=== PATIENT | female | born 1995 | race Two or more races ===

== ENCOUNTER 2020-11-04 16:23 | Emergency (ER) | payer OTHER ==
[~2020-11-04] VITALS: Ht 160 cm; Wt 72.7 kg
[2020-11-04] MEDS ORDERED: IV NORMAL SALINE 1000ML BAG 1,000 ML IV SCH (17:30)
--- NOTE | 2020-11-04 17:48 | PHYS DOC ---
Past Medical History Past Medical History: No Pertinent History Past Surgical History: No Surgical History Smoking Status: Current Every Day Smoker Alcohol Use: Occasionally Drug Use: Marijuana General Adult EDM: Chief Complaint: OTHER COMPLAINTS HPI: HPI: Patient is a 25 year old female who presents with on October 09 she had a C- section at [facility] by a Dr. Smith of which she has an appointment with on November 18. Patient states there is a section of the line that is draining and has a foul smell. She states she also had 102 fever over the last couple of days. Patient states she also has had bug bites generalized on her body after being in an outside of somebody's house on 02 November. She states she has been taking allergy medication. Patient states she has stopped breast- feeding. Patient states her c section incision is sore to touch and has been cleaning it with peroxide. Review of Systems: Review of Systems: Constitutional: + fever or chills. [] Eyes: Denies change in visual acuity. [] HENT: Denies nasal congestion or sore throat. [] Respiratory: Denies cough or shortness of breath. [] Cardiovascular: Denies chest pain or edema. [] GI: Denies abdominal pain, nausea, vomiting, bloody stools or diarrhea. [] : Denies dysuria. [] Musculoskeletal: Denies back pain or joint pain. [] Integument: + generalized itchy rash. + incision drainage and foul smell [] Neurologic: Denies headache, focal weakness or sensory changes. [] Endocrine: Denies polyuria or polydipsia. [] Lymphatic: Denies swollen glands. [] Psychiatric: Denies depression or anxiety. [] Heart Score: C/O Chest Pain: No Risk Factors: Risk Factors: DM, Current or recent (<one month) smoker, HTN, HLP, family history of CAD, obesity. Risk Scores: Score 0 - 3: 2.5% MACE over next 6 weeks - Discharge Home Score 4 - 6: 20.3% MACE over next 6 weeks - Admit for Clinical Observation Score 7 - 10: 72.7% MACE over next 6 weeks - Early Invasive Strategies Current Medications: Current Medications Medications (Trade) Dose Ordered Sig/Seth Start Time Stop Time Status Last Admin Dose Admin Sodium Chloride 1,000 ml @ 1,000 mls/hr Q1H 11/04/20 17:30 11/04/20 18:29 Allergies: Allergies: Allergies Coded Allergies Type Severity Reaction Last Updated Verified No Known Drug Allergies 04/23/13 No Physical Exam: PE: Constitutional: Well developed, well nourished, no acute distress, non-toxic appearance. [] HENT: Normocephalic, atraumatic, bilateral external ears normal, oropharynx moist, no oral exudates, nose normal. [] Eyes: PERRLA, EOMI, conjunctiva normal, no discharge. [] Neck: Normal range of motion, no tenderness, supple, no stridor. [] Cardiovascular:Heart rate regular rhythm, no murmur [] Lungs & Thorax: Bilateral breath sounds clear to auscultation [] Abdomen: Bowel sounds normal, soft, no tenderness, no masses, no pulsatile masses. [] Skin: Warm, dry, no erythema, no rash. 1 inch of the looks to be slightly opened and having some drainage. Bites generalized all over body [] Back: No tenderness, no CVA tenderness. [] Extremities: No tenderness, no cyanosis, no clubbing, ROM intact, no edema. [] Neurologic: Alert and oriented X 3, normal motor function, normal sensory function, no focal deficits noted. [] Psychologic: Affect normal, judgement normal, mood normal. [] EKG: EKG: [] Radiology/Procedures: Radiology/Procedures: [] Impression: [facility] [address] [place], [place] [id number] IMAGING REPORT Signed PATIENT: PHIL NGUYEN ACCOUNT: [id number] : 1995 LOCATION: ER AGE: 25 SEX: F EXAM STATUS: REG ER ORD. PHYSICIAN: LEESA PHELAN APRN REASON: c section infection and drainage, fever PROCEDURE: CT ABD PELV W/ IV CONTRST ONLY EXAMINATION: CT ABDOMEN+PELVIS W CLINICAL HISTORY: infection and drainage, fever TECHNIQUE: CT of the abdomen and pelvis was performed using standard technique, scanning from just above the dome of the diaphragm to the symphysis pubis following administration of intravenous contrast. CT Dose Reduction Employed: One or more of the following individualized dose reduction techniques were utilized for this examination: 1. Automated exposure control 2. Adjustment of the mA and/or kV according to patient size 3. Use of iterative reconstruction technique. COMPARISON: None FINDINGS: Visualized heart and lungs unremarkable. Cholecystectomy. Liver, pancreas, spleen, adrenal glands, and kidneys unremarkable. Postoperative changes related to section. Mild heterogeneous stranding extending from the anterior superior urinary bladder to the posterior abdominal wall proximal to the scar, nonspecific and possibly postsurgical. No evidence of organized rim-enhancing collection to suggest an abscess. Minimally filled urinary bladder. Uterus and ovaries unremarkable. Mild scattered diverticulosis with mild posterior wall thickening and pericolonic stranding along the mid to distal descending colon, suggestive of diverticulitis/colitis. No bowel dilation. Appendix within normal limits. No evidence of abdominal aortic or iliac artery aneurysm. Moderate degenerative disc disease at L5-S1. IMPRESSION: Findings compatible with mild diverticulitis/colitis in the ascending colon. Postoperative and nonspecific soft tissue changes related to section as described with no evidence of postsurgical abscess. Electronically signed by: Juan Avila DO (11/04/2020 6:52 PM) [facility] DICTATED and SIGNED BY: JUAN AVILA DO DATE: 11/04/20 [id number] Course & Med Decision Making: Course & Med Decision Making Pertinent Labs and Imaging studies reviewed. (See chart for details) See HPI. Alert and oriented x4. Ambulatory with a steady gait. Speaks in full clear sentences. Patient appears to have random generalized insect bites. There is no bites in the webbing of her fingers or the toes. Dr. Pelaez did go in and look over the patient he agrees her some kind of bug bites. Abdomen is soft but slightly tender at the laceration area. No drainage is seen at this time. She is afebrile. Blood work unremarkable. CT abdomen pelvis showed some diverticulitis/colitis. It does not show an abscess or any fluid collection connected to the . She is afebrile. She is tolerating all p.o. fluid she has not had any nausea or vomiting body aches. Patient is stable and will be sent home on Augmentin. Patient is stable for outpatient treatment and in no distress. [] Kalpana Disclaimer: Kalpana Disclaimer: This electronic medical record was generated, in whole or in part, using a voice recognition dictation system. Departure Departure Impression: Primary Impression: Diverticulitis Additional Impressions: Colitis Bug bite without infection Qualified Codes: W57.XXXA - Bitten or stung by nonvenomous insect and other nonvenomous arthropods, initial encounter Disposition: HOME / SELF CARE / HOMELESS Condition: STABLE Referrals: NO PCP (PCP) BETH GRAHAM MD Patient Instructions: Colitis, Diverticulitis, Insect Bite Additional Instructions: Follow-up with primary care doctor or your OB doctor sooner. I will refer you to a GI doctor for colitis and diverticulitis for follow-up care. Need to call and get a follow-up appointment. Drink plenty of fluids. I would just put Neosporin over your incision. Scripts Amoxicillin/Potassium Clav (AUGMENTIN 875-125 TABLET) 1 Each Tablet 1 TAB PO BID for 10 Days, #20 TAB 0 Refills Prov: LEESA PHELAN APRN 11/04/20 LEESA PHELAN APRN Nov 04, 2020 17:48
[2020-11-04 18:02] VITALS: BP 112/71
[2020-11-04 18:04] LABS: BASO % 1 % (0-3); EOS # 0.3 x10^3/uL (0.0-0.7); EOS % 4 % (0-3); HEMATOCRIT 35.5 % (36.0-47.0); HEMOGLOBIN 12.2 g/dL (12.0-15.5); LYMPH # 2.9 x10^3/uL (1.0-4.8); LYMPH % 37 % (24-48); MEAN CORPUSCULAR HEMOGLOBIN 29 pg (25-35); MEAN CORPUSCULAR HGB CONC 34 g/dL (31-37); MEAN CORPUSCULAR VOLUME 85 fL (79-100); MONO # 0.4 x10^3/uL (0.0-1.1); MONO % 5 % (0-9); NEUT # 4.2 x10^3/uL (1.8-7.7); NEUT % 54 % (31-73); PLATELET COUNT 253 x10^3/uL (140-400); RED BLOOD COUNT 4.18 x10^6/uL (3.50-5.40); WHITE BLOOD COUNT 7.8 x10^3/uL (4.0-11.0)
[2020-11-04 18:17] LABS: CREATININE 0.6 mg/dL (0.6-1.0); GFR 121.8; POTASSIUM 3.9 mmol/L (3.5-5.1)
[2020-11-04 18:24] LABS: ALBUMIN 3.8 g/dL (3.4-5.0); ALBUMIN/GLOBULIN RATIO 1.1 (1.0-1.7); TOTAL BILIRUBIN 0.2 mg/dL (0.2-1.0); TOTAL PROTEIN 7.3 g/dL (6.4-8.2)
[2020-11-04 18:30] LABS: BILIRUBIN,URINE NEGATIVE (NEG); CLARITY,URINE CLEAR; COLOR,URINE YELLOW; NITRITE,URINE NEGATIVE (NEG); PROTEIN,URINE NEGATIVE (NEG-TRACE); UROBILINOGEN,URINE 0.2 mg/dL (0.2 mg/dL)
[2020-11-04] MEDS ORDERED: DEXAMETHASONE 4 MG TABLET PO ONE (18:30)
[2020-11-04 18:39] LABS: BACTERIA,URINE 0 /HPF (0-FEW); RBC,URINE 0 /HPF (0-2); WBC,URINE OCC /HPF (0-4)
[2020-11-04] MEDS ORDERED: CONTRAST GIVEN. MC PRN (18:45)
[2020-11-04] MEDS ORDERED: IOHEXOL 300 MG/ML 100ML VIAL. IV ONE (18:45)
--- NOTE | 2020-11-04 18:54 | RAD ---
EXAMINATION: CT ABDOMEN+PELVIS W CLINICAL HISTORY: infection and drainage, fever TECHNIQUE: CT of the abdomen and pelvis was performed using standard technique, scanning from just ab ove the dome of the diaphragm to the symphysis pubis following administration of intravenous contrast . CT Dose Reduction Employed: One or more of the following individualized dose reduction techniques wer e utilized for this examination: 1. Automated exposure control 2. Adjustment of the mA and/or kV ac cording to patient size 3. Use of iterative reconstruction technique. COMPARISON: None FINDINGS: Visualized heart and lungs unremarkable. Cholecystectomy. Liver, pancreas, spleen, adrenal glands, and kidneys unremarkable. Postoperative changes related to section. Mild heterogeneous stranding extending from the an terior superior urinary bladder to the posterior abdominal wall proximal to the scar, nonspe cific and possibly postsurgical. No evidence of organized rim-enhancing collection to suggest an absc ess. Minimally filled urinary bladder. Uterus and ovaries unremarkable. Mild scattered diverticulosis with mild posterior wall thickening and pericolonic stranding along the mid to distal descending colon, suggestive of diverticulitis/colitis. No bowel dilation. Appendix wi thin normal limits. No evidence of abdominal aortic or iliac artery aneurysm. Moderate degenerative disc disease at L5-S1. IMPRESSION: Findings compatible with mild diverticulitis/colitis in the ascending colon. Postoperative and nonspecific soft tissue changes related to section as described with no ev idence of postsurgical abscess. Electronically signed by: Juan Blake DO (11/04/2020 6:52 PM) [facility]
[2020-11-04] MEDS ORDERED: AMOX1TAB61 PO (19:08)
== END 2020-11-04 20:02 | disposition home or self-care (01) ==
LOC: ER 16:23
DX: O90.89 Other complications of the puerperium, not elsewhere classified (principal); S30.860A Insect bite (nonvenomous) of lower back and pelvis, initial encounter; K57.92 Diverticulitis of intestine, part unspecified, without perforation or abscess without bleeding; K52.9 Noninfective gastroenteritis and colitis, unspecified; O99.335 Smoking (tobacco) complicating the puerperium; W57.XXXA Bitten or stung by nonvenomous insect and other nonvenomous arthropods, initial encounter; Y93.89 Activity, other specified; Y92.89 Other specified places as the place of occurrence of the external cause; Y99.8 Other external cause status
CPT/HCPCS: 36415; 74177; 80053; 81001; 81025; 83605; 85025; 87040; 96360; 99285; J7030; Q9967